=== PATIENT | male | born 1965 | race Caucasian/White ===

== ENCOUNTER 2017-02-12 02:36 | Emergency (ER) | payer SELFPAY ==
[~2017-02-12] VITALS: Ht 182.9 cm; Wt 115.0 kg
[2017-02-12 02:39] VITALS: BP 132/79; PULSE 87; RESP 18; TEMP 98.4; O2SAT 96
[2017-02-12 02:56] LABS: AUTOMATED NEUTROPHIL # 4.9 TH/MM3 (1.8-7.7); BASOPHIL % 0.1 % (0.0-2.0); EOSINOPHIL # 0.1 TH/MM3 (0-0.4); EOSINOPHIL % 1.3 % (0.0-4.0); HEMATOCRIT 44.1 % (39.0-51.0); HEMO FLAGS DIFF FINAL; LYMPH % 42.5 % (9.0-44.0); LYMPHOCYTE # 4.5 TH/MM3 (1.0-4.8); MEAN CORPUSCULAR HEMOGLOBIN 30.1 PG (27.0-34.0); MEAN CORPUSCULAR HGB CONC 35.4 % (32.0-36.0); MONO % 10.4 % (0.0-8.0); NEUT % 45.7 % (16.0-70.0); PLATELET COUNT 407 TH/MM3 (150-450); RED BLOOD COUNT 5.19 MIL/MM3 (4.50-5.90); RED CELL DISTRIBUTION WIDTH 13.1 % (11.6-17.2); WHITE BLOOD COUNT 10.6 TH/MM3 (4.0-11.0)
--- NOTE | 2017-02-12 03:03 | RADRPT ---
EXAM DATE/TIME: 02/12/2017 02:36 [facility] COMPARISON: No previous studies available for comparison. INDICATIONS : Pt stopped breathing earlier tonight. MEDICAL HISTORY : Seizures SURGICAL HISTORY : None. ENCOUNTER: Initial ACUITY: 1 day PAIN SCORE: 9/10 LOCATION: Bilateral chest FINDINGS: A single view of the chest demonstrates the lungs to be symmetrically aerated without evidence of mas s, infiltrate or effusion. The cardiomediastinal contours are unremarkable. Osseous structures are intact. CONCLUSION: 1. No acute cardiopulmonary disease. Mal Holman MD on February 12, 2017 at 3:02 Board Certified Radiologist. This report was verified electronically.
--- NOTE | 2017-02-12 03:03 | PD ---
HPI Chief Complaint: OD/ Ingestion Time Seen by Provider: 02:41 Travel History International Travel<30 days: No Contact w/Intl Traveler<30days: No Traveled to known affect area: No History of Present Illness HPI Patient is a 52 year old male who presents to ER after an accidently heroine overdose. Patient was found on the ground with a "lady" at his side performing cpr. Apparently, patient overdosed on heroine tonight while in bed at a motel. "Lady friend" pulled patient to the ground and started cpr. Patient denies si /hi. Patient with no c/o at this time. Patient was giving narcan 2mg IM by EMS [facility] Past Medical History Diminished Hearing: No Hypertension: Yes Seizures: Yes (ETOH withdraw) Tetanus Vaccination: Unknown Past Surgical History Surgical History: No Previous Surgery Social History Alcohol Use: No Tobacco Use: Yes Substance Use: Yes (herion, marijaunia) Allergies-Medications (Allergen,Severity, Reaction): Coded Allergies: No Known Allergies (Unverified , 02/12/17) Reported Meds & Prescriptions Reported Meds & Active Scripts Active No Active Prescriptions or Reported Medications Review of Systems General / Constitutional: No: Fever Eyes: No: Visual changes HENT: No: Headaches Cardiovascular: No: Chest Pain or Discomfort Respiratory: No: Shortness of Breath Gastrointestinal: No: Abdominal Pain Genitourinary: No: Dysuria Musculoskeletal: No: Pain Skin: No Rash Neurologic: No: Weakness Psychiatric: Positive: Substance Abuse, No: Depression Endocrine: No: Polydipsia Hematologic/Lymphatic: No: Easy Bruising Physical Exam Narrative GENERAL: NAD SKIN: Focused skin assessment warm/dry. HEAD: Atraumatic. Normocephalic. EYES: Pupils pinpoint. No scleral icterus. No injection or drainage. ENT: No nasal bleeding or discharge. Mucous membranes pink and moist. NECK: Trachea midline. No JVD. CARDIOVASCULAR: Regular rate and rhythm. No murmur appreciated. RESPIRATORY: No accessory muscle use. Clear to auscultation. Breath sounds equal bilaterally. GASTROINTESTINAL: Abdomen soft, non-tender, nondistended. Hepatic and splenic margins not palpable. MUSCULOSKELETAL: No obvious deformities. No clubbing. No cyanosis. No edema. NEUROLOGICAL: Awake and alert. No obvious cranial nerve deficits. Motor grossly within normal limits. Normal speech. PSYCHIATRIC: Appropriate mood and affect; insight and judgment normal. Data Data Last Documented VS Vital Signs Date Time Temp Pulse Resp B/P Pulse Ox O2 Delivery O2 Flow Rate FiO2 02/12/17 02:45 Room Air 02/12/17 02:39 98.4 87 18 132/79 96 Orders Basic Metabolic Panel (Bmp) (02/12/17 02:39) Complete Blood Count With Diff (02/12/17 02:39) Prothrombin Time / Inr (Pt) (02/12/17 02:39) Act Partial Throm Time (Ptt) (02/12/17 02:39) Alcohol (Ethanol) (02/12/17 02:39) Urinalysis - C+S If Indicated (02/12/17 02:39) Chest, Single Ap (02/12/17 02:39) Ct Brain W/O Iv Contrast(Rout) (02/12/17 02:39) Ct Cerv Spine W/O Contrast (02/12/17 02:39) Electrocardiogram (02/12/17 02:39) Apply Cervical Collar (02/12/17 02:39) Blood Glucose (02/12/17 02:39) Iv Access Insert/Monitor (02/12/17 02:39) Ecg Monitoring (02/12/17 02:39) Oximetry (02/12/17 02:39) Drug Screen, Random Urine (02/12/17 02:39) Potassium Chloride (Kcl) (02/12/17 03:30) Labs Laboratory Tests Test 02/12/17 02:45 White Blood Count 10.6 TH/MM3 Red Blood Count 5.19 MIL/MM3 Hemoglobin 15.6 GM/DL Hematocrit 44.1 % Mean Corpuscular Volume 85.0 FL Mean Corpuscular Hemoglobin 30.1 PG Mean Corpuscular Hemoglobin 35.4 % Concent Red Cell Distribution Width 13.1 % Platelet Count 407 TH/MM3 Mean Platelet Volume 7.9 FL Neutrophils (%) (Auto) 45.7 % Lymphocytes (%) (Auto) 42.5 % Monocytes (%) (Auto) 10.4 % Eosinophils (%) (Auto) 1.3 % Basophils (%) (Auto) 0.1 % Neutrophils # (Auto) 4.9 TH/MM3 Lymphocytes # (Auto) 4.5 TH/MM3 Monocytes # (Auto) 1.1 TH/MM3 Eosinophils # (Auto) 0.1 TH/MM3 Basophils # (Auto) 0.0 TH/MM3 CBC Comment DIFF FINAL Differential Comment Prothrombin Time 10.4 SEC Prothromb Time International 0.9 RATIO Ratio Activated Partial 22.4 SEC Thromboplast Time Sodium Level 139 MEQ/L Potassium Level 3.3 MEQ/L Chloride Level 104 MEQ/L Carbon Dioxide Level 23.5 MEQ/L Anion Gap 12 MEQ/L Blood Urea Nitrogen 12 MG/DL Creatinine 1.05 MG/DL Estimat Glomerular Filtration 75 ML/MIN Rate Random Glucose 168 MG/DL Calcium Level 8.6 MG/DL Ethyl Alcohol Level LESS THAN 3 MG/DL MDM Medical Decision Making Medical Screen Exam Complete: Yes Emergency Medical Condition: Yes Interpretation(s) EKG at 0244: NSR at 79bpm, qt/qtc: 393/428, no acute st or t wave changes Vital Signs Date Time Temp Pulse Resp B/P Pulse Ox O2 Delivery O2 Flow Rate FiO2 02/12/17 02:45 Room Air 02/12/17 02:39 98.4 87 18 132/79 96 Differential Diagnosis differential includes drug abuse, electrolyte abnormality Narrative Course Patient is a 52 year old male who presents to the ER after an accidental drug overdose. Patient overdosed on heroine today and was given narcan 2mg IM by ems. Patient with no c/o at this time. Ct of head/neck ordered as patient was pulled to the floor by a bystander as cpr was performed prior to EMS arrival on scene Vital Signs Date Time Temp Pulse Resp B/P Pulse Ox O2 Delivery O2 Flow Rate FiO2 02/12/17 02:45 Room Air 02/12/17 02:39 98.4 87 18 132/79 96 Laboratory Tests Test 02/12/17 02:45 White Blood Count 10.6 TH/MM3 (4.0-11.0) Red Blood Count 5.19 MIL/MM3 (4.50-5.90) Hemoglobin 15.6 GM/DL (13.0-17.0) Hematocrit 44.1 % (39.0-51.0) Mean Corpuscular Volume 85.0 FL (80.0-100.0) Mean Corpuscular Hemoglobin 30.1 PG (27.0-34.0) Mean Corpuscular Hemoglobin 35.4 % Concent (32.0-36.0) Red Cell Distribution Width 13.1 % (11.6-17.2) Platelet Count 407 TH/MM3 (150-450) Mean Platelet Volume 7.9 FL (7.0-11.0) Neutrophils (%) (Auto) 45.7 % (16.0-70.0) Lymphocytes (%) (Auto) 42.5 % (9.0-44.0) Monocytes (%) (Auto) 10.4 % (0.0-8.0) Eosinophils (%) (Auto) 1.3 % (0.0-4.0) Basophils (%) (Auto) 0.1 % (0.0-2.0) Neutrophils # (Auto) 4.9 TH/MM3 (1.8-7.7) Lymphocytes # (Auto) 4.5 TH/MM3 (1.0-4.8) Monocytes # (Auto) 1.1 TH/MM3 (0-0.9) Eosinophils # (Auto) 0.1 TH/MM3 (0-0.4) Basophils # (Auto) 0.0 TH/MM3 (0-0.2) CBC Comment DIFF FINAL Differential Comment Prothrombin Time 10.4 SEC (9.8-11.6) Prothromb Time International 0.9 RATIO Ratio Activated Partial 22.4 SEC Thromboplast Time (24.3-30.1) Sodium Level 139 MEQ/L (136-145) Potassium Level 3.3 MEQ/L (3.5-5.1) Chloride Level 104 MEQ/L (98-107) Carbon Dioxide Level 23.5 MEQ/L (21.0-32.0) Anion Gap 12 MEQ/L (5-15) Blood Urea Nitrogen 12 MG/DL (7-18) Creatinine 1.05 MG/DL (0.60-1.30) Estimat Glomerular Filtration 75 ML/MIN (>89) Rate Random Glucose 168 MG/DL (74-106) Calcium Level 8.6 MG/DL (8.5-10.1) Ethyl Alcohol Level LESS THAN 3 MG/DL (0-5) Last Impressions Head CT 02/12/17238 Signed Impressions: Service Date/Time: Sunday, February 12, 2017 02:51 - CONCLUSION: 1. No evidence of acute intracranial pathology. No masses are identified. Mal Holman MD Chest X-Ray 02/12/17238 Signed Impressions: Service Date/Time: Sunday, February 12, 2017 02:36 - CONCLUSION: 1. No acute cardiopulmonary disease. Mal Holman MD Cervical Spine CT 02/12/17 0239 Signed Impressions: Service Date/Time: Sunday, February 12, 2017 02:53 - CONCLUSION: 1. There is no evidence of acute fracture. 2. Small central protrusion at C3-C4 without stenosis Mal Holman MD patient has been observed in the ER for 4 hours. Patient stable for discharge. Patient instructed to stop using drugs Diagnosis Primary Impression: Accidental drug overdose Qualified Code: T50.901A - Accidental drug overdose, initial encounter Additional Impression: Hypokalemia Patient Instructions: General Instructions Additional Instructions: Stop using drugs Return to ER as needed Follow up with your primary care doctor Scripts No Active Prescriptions or Reported Meds Disposition: 01 DISCHARGE HOME Condition: Stable Amelia Ahuja DO Feb 12, 2017 03:03
--- NOTE | 2017-02-12 03:11 | RADRPT ---
EXAM DATE/TIME: 02/12/2017 02:51 [facility] COMPARISON: No previous studies available for comparison. INDICATIONS : Trauma, possible fall. RADIATION DOSE: 56.35 CTDIvol (mGy) MEDICAL HISTORY : None SURGICAL HISTORY : None. ENCOUNTER: Initial ACUITY: 1 day PAIN SCALE: 0/10 LOCATION: cranial TECHNIQUE: Multiple contiguous axial images were obtained of the head. Using automated exposure control and adj ustment of the mA and/or kV according to patient size, radiation dose was kept as low as reasonably a chievable to obtain optimal diagnostic quality images. DICOM format image data is available electro nically for review and comparison. FINDINGS: CEREBRUM: The ventricles are normal for age. No evidence of midline shift, mass lesion, hemorrhage or acute in farction. No extra-axial fluid collections are seen. A cavum septum pellucidum er vergae a is presen t. POSTERIOR FOSSA: The cerebellum and brainstem are intact. The 4th ventricle is midline. The cerebellopontine angle i s unremarkable. EXTRACRANIAL: The visualized portion of the orbits is intact. SKULL: The calvaria is intact. No evidence of skull fracture. CONCLUSION: 1. No evidence of acute intracranial pathology. No masses are identified. Mal Holman MD on February 12, 2017 at 3:09 Board Certified Radiologist. This report was verified electronically.
--- NOTE | 2017-02-12 03:14 | RADRPT ---
EXAM DATE/TIME: 02/12/2017 02:53 [facility] COMPARISON: No previous studies available for comparison. INDICATIONS : Trauma, possible fall. RADIATION DOSE: 38.54 CTDIvol (mGy) MEDICAL HISTORY : None SURGICAL HISTORY : None. ENCOUNTER: Initial ACUITY: 1 day PAIN SCALE: 0/10 LOCATION: neck TECHNIQUE: Volumetric scanning of the cervical spine was performed. Multiplanar reconstructions in the sagittal, coronal and oblique axial planes were performed. Using automated exposure control and adjustment o f the mA and/or kV according to patient size, radiation dose was kept as low as reasonably achievable to obtain optimal diagnostic quality images. DICOM format image data is available electronically f or review and comparison. FINDINGS: Sagittal images demonstrate normal vertebral body alignment and curvature. The odontoid is intact. Th e occipital condyles and lateral masses of C1 are intact. Axial images were performed from C2-C3 to C7-T1. There is multilevel disc space narrowing and marginal osteophyte formation maximal at C5-C6. C2-C3: There is no evidence of disc protrusion or spinal canal stenosis. There is uncovertebral joint hypert rophy on the right side. The neural foramina are clear bilaterally. C3-C4: A small central protrusion is present impinging not significantly impinging on the thecal sac. There is no significant spinal canal stenosis. The neural foramina are clear bilaterally. C4-C5: No significant abnormalities identified. C5-C6: No significant abnormalities identified. C6-C7: There is no evidence of disc protrusion or spinal canal stenosis. There is mild facet arthritis bilat erally. The neural foramina are clear bilaterally. C7-T1: No significant abnormalities identified. CONCLUSION: 1. There is no evidence of acute fracture. 2. Small central protrusion at C3-C4 without stenosis Mal Holman MD on February 12, 2017 at 3:10 Board Certified Radiologist. This report was verified electronically.
[2017-02-12 03:16] LABS: ANION GAP 12 MEQ/L (5-15); BICARBONATE 23.5 MEQ/L (21.0-32.0); BLOOD UREA NITROGEN 12 MG/DL (7-18); CHLORIDE 104 MEQ/L (98-107); GLOMERULAR FILTRATION RATE 75 ML/MIN (>89); POTASSIUM 3.3 MEQ/L (3.5-5.1); SODIUM (NA) 139 MEQ/L (136-145)
[2017-02-12 03:23] LABS: APTT (PATIENT) 22.4 SEC (24.3-30.1); INTERNATIONAL NORMALIZED RATIO 0.9 RATIO; PROTHROMBIN TIME - PATIENT 10.4 SEC (9.8-11.6)
[2017-02-12] MEDS ORDERED: POTASSIUM CHLORIDE 10 MEQ CONTROLLED RELEASE TAB PO ONE (03:30)
--- NOTE | 2017-02-14 18:17 | EKG ---
Date Performed: 02/12/2017 Time Performed: 02:44:12 PTAGE: 52 years EKG: Sinus rhythm NONSPECIFIC T-WAVE ABNORMALITY BORDERLINE ECG NO PREVIOUS TRACING DOCTOR: Aroldo Joe Interpretating Date/Time 02/14/2017 18:13:21
== END 2017-02-12 06:40 | disposition home or self-care (01) ==
LOC: NEPC 02:36
DX: T50.901A Poisoning by unspecified drugs, medicaments and biological substances, accidental (unintentional), initial encounter (principal); E87.6 Hypokalemia; R94.31 Abnormal electrocardiogram [ECG] [EKG]; I10 Essential (primary) hypertension; Z72.0 Tobacco use
CPT/HCPCS: 70450; 71010; 72125; 80048; 80307; 85025; 85610; 85730; 93005; 99285